=== PATIENT | male | born 1955 | race Asian ===

== ENCOUNTER 2017-03-28 15:12 | Emergency (ER) | payer OTHER ==
[~2017-03-28] VITALS: Ht 165.1 cm; Wt 59.1 kg
[~2017-03-28 15:12] MED LIST: CALC-724 PO; OMEP20 PO; SIMV-259 PO
[2017-03-28] MEDS ORDERED: D-ME118S13 PO (15:16)
[2017-03-28] MEDS ORDERED: IPRATROPIUM BROMIDE 0.5 MG/2.5 ML NEB SOLUTION NEB ONE (17:30)
[2017-03-28] MEDS ORDERED: CefTRIAXone SODIUM 1 GM/VIAL IM ONE (17:30)
[2017-03-28] MEDS ORDERED: ALBUTEROL SULFATE 5 MG/ML 20 ML NEB SOLN [BULK] NEB ONE (17:30)
[2017-03-28] MEDS ORDERED: LIDOCAINE HCL/PF 1% 2 ML VIAL IM ONE (17:30)
[2017-03-28] MEDS ORDERED: ALBUTEROL SULFATE HFA 90 MCG/PUFF 8 GM INHALER IH ONE (17:30)
[2017-03-28] MEDS ORDERED: DEXAMETHASONE SOD PHOS 4 MG/ML 5 ML VIAL IM ONE (17:45)
[2017-03-28 19:08] VITALS: BP 122/89
== END 2017-03-28 19:19 | disposition home or self-care (01) ==
LOC: EMS 15:13
DX: J44.9 Chronic obstructive pulmonary disease, unspecified (principal); J40 Bronchitis, not specified as acute or chronic; E78.00 Pure hypercholesterolemia, unspecified; K21.9 Gastro-esophageal reflux disease without esophagitis
CPT/HCPCS: 71020; 94644; 94664; 96372; 99285; J0696; J1100; J3490; J7611; J3535

== ENCOUNTER 2017-07-02 07:43 | Emergency (ER) | payer OTHER ==
[~2017-07-02] VITALS: Ht 152.4 cm; Wt 59.1 kg
[~2017-07-02 07:43] MED LIST changes: +D-ME118S13 PO
[2017-07-02] MEDS ORDERED: HYDR25TA PO (07:50)
[2017-07-02] MEDS ORDERED: NEOSOS OP (07:50)
[2017-07-02] MEDS ORDERED: AMLO-512 PO (07:50)
[2017-07-02] MEDS ORDERED: AMOX1TAB13 PEG (07:50)
[2017-07-02 08:55] VITALS: BP 110/72
== END 2017-07-02 09:03 | disposition home or self-care (01) ==
LOC: EMS 07:44
DX: H11.31 Conjunctival hemorrhage, right eye (principal); K21.9 Gastro-esophageal reflux disease without esophagitis; E78.00 Pure hypercholesterolemia, unspecified; I10 Essential (primary) hypertension
CPT/HCPCS: 99282

== ENCOUNTER 2018-06-27 15:52 | Emergency (ER) | payer OTHER ==
[~2018-06-27] VITALS: Ht 157.5 cm; Wt 60.0 kg
[~2018-06-27 15:52] MED LIST changes: +AMLO-512 PO; +AMOX1TAB13 PEG; -D-ME118S13 PO; +HYDR25TA PO; -OMEP20 PO
[2018-06-27 16:01] VITALS: BP 145/87
[2018-06-27] MEDS ORDERED: KETOROLAC TROMETHAMINE 30 MG/ML VIAL IM ONE (17:15)
[2018-06-27] MEDS ORDERED: AMOX1TAB16 PO (17:19)
== END 2018-06-27 19:05 | disposition home or self-care (01) ==
LOC: EMS 15:53
DX: J40 Bronchitis, not specified as acute or chronic (principal); E78.00 Pure hypercholesterolemia, unspecified; I10 Essential (primary) hypertension; Z79.899 Other long term (current) drug therapy
CPT/HCPCS: 71046; 96372; 99283; J1885

== ENCOUNTER 2018-07-04 10:42 | Emergency (ER) | payer OTHER ==
[~2018-07-04] VITALS: Ht 157.5 cm; Wt 59.1 kg
[~2018-07-04 10:42] MED LIST changes: -AMOX1TAB13 PEG; +AMOX1TAB16 PO
[2018-07-04] MEDS ORDERED: ALBUTEROL SULFATE HFA 90 MCG/PUFF 8 GM INHALER IH ONE (12:15)
[2018-07-04] MEDS ORDERED: IPRATROPIUM BROMIDE 0.5 MG/2.5 ML NEB SOLUTION NEB ONE (12:15)
[2018-07-04] MEDS ORDERED: ALBUTEROL SULFATE 2.5 MG/0.5 ML NEB SOLUTION NEB ONE (12:15)
[2018-07-04 13:52] VITALS: BP 130/79
== END 2018-07-04 14:25 | disposition home or self-care (01) ==
LOC: EMS 10:42
DX: J40 Bronchitis, not specified as acute or chronic (principal); I10 Essential (primary) hypertension; K21.9 Gastro-esophageal reflux disease without esophagitis; E78.00 Pure hypercholesterolemia, unspecified
CPT/HCPCS: 94640; J3535